=== PATIENT | female | born 1955 | race Caucasian/White ===

== ENCOUNTER 2021-03-28 18:30 | Emergency (ER) | payer MEDICARE, OTHER ==
--- NOTE | 2021-03-28 19:09 | EDM.PDOC ---
ED HPI GENERAL MEDICAL PROBLEM - General Chief Complaint: Trauma Stated Complaint: FELL OFF HORSE/HEAD INJURY Time Seen by Provider: 03/28/21 18:53 - History of Present Illness INITIAL COMMENTS - FREE TEXT/NARRATIVE: 65-year-old female presents the emergency room several hours after falling off a horse. She did break the back of her helmet and she had positive loss of consciousness. She complains of head and neck pain as well as pain all the way down her spine. Patient cannot recall exactly what it happened or how fast she was going. She states she is up-to-date on her tetanus shot. She uses an asthma inhaler otherwise is not on any routine medications. She states her health is generally pretty good. She has no other complaints at this time. Head Pain Score (Numeric/FACES): 8 - Related Data Allergies Allergy/AdvReac Type Severity Reaction Status Date / Time No Known Allergies Allergy Verified 03/28/21 19:00 Home Meds: Home Meds Albuterol Sulfate [Proventil Hfa] 1 inh IH Q4H PRN 03/28/21 [History] Past Medical History Respiratory History: Reports: Asthma Social & Family History - Tobacco Use Tobacco Use Status *Q: Never Tobacco User - Caffeine Use Caffeine Use: Reports: Tea - Recreational Drug Use Recreational Drug Use: No Review of Systems - Review of Systems Review Of Systems: See Below Constitutional: Reports: No Symptoms Eyes: Reports: No Symptoms, Glasses Nose: Reports: No Symptoms Mouth/Throat: Reports: No Symptoms Respiratory: Reports: Pleuritic Chest Pain Cardiovascular: Reports: No Symptoms GI/Abdominal: Reports: No Symptoms, Abdominal Pain. Denies: Diarrhea, Nausea, Vomiting Genitourinary: Reports: No Symptoms Musculoskeletal: Reports: No Symptoms Skin: Reports: No Symptoms Neurological: Reports: Dizziness, Headache ED EXAM, GENERAL - Physical Exam Exam: See Below Exam Limited By: No Limitations General Appearance: Alert, No Apparent Distress Eye Exam: Bilateral Eye: EOMI, Normal Inspection, PERRL Ears: Normal External Exam, Normal Canal, Hearing Grossly Normal, Normal TMs Nose: Normal Inspection, Normal Mucosa, No Blood Throat/Mouth: Normal Inspection, Normal Lips, Normal Teeth, Normal Gums, Normal Oropharynx, Normal Voice, No Airway Compromise Head: Atraumatic, Normocephalic Neck: Other (Vague discomfort I do not think it is coming from the bony structures) Cardiovascular: Regular Rate, Rhythm, No Edema, No Murmur GI/Abdominal: Normal Bowel Sounds, Soft, Non-Tender Back Exam: Normal Inspection, Vertebral Tenderness (No step-off deformity pains vague). No: CVA Tenderness (L), CVA Tenderness (R) Extremities: Normal Inspection, Normal Range of Motion, Non-Tender Neurological: Alert, Normal Cognition, No Motor/Sensory Deficits Psychiatric: Normal Affect, Normal Mood Course - Vital Signs Last Recorded V/S: Last Vital Signs Temp 36.0 C L 03/28/21 18:57 Pulse 90 03/28/21 19:21 Resp 16 03/28/21 19:21 BP 149/78 H 03/28/21 19:21 Pulse Ox 98 03/28/21 19:21 - Orders/Labs/Meds Orders: Active Orders 24 hr Category Date Time Status Abdomen Pelvis w Cont [CT] Stat Exams 03/28/21 19:10 Taken Cervical Spine wo Cont [CT] Stat Exams 03/28/21 19:10 Taken Head wo Cont [CT] Stat Exams 03/28/21 19:10 Taken Lumbar Spine wo Cont [CT] Stat Exams 03/28/21 19:10 Taken Thoracic Spine wo Cont [CT] Stat Exams 03/28/21 19:10 Taken UA RFX CLAUDY AND CULT IF INDIC [URIN] Stat Lab 03/28/21 19:11 Ordered Lactated Ringers [Ringers, Lactated] 1,000 ml Med 03/28/21 19:15 Active IV ASDIRECTED Medication Orders Lactated Ringer's (Ringers, Lactated) 1,000 mls @ 125 mls/hr IV ASDIRECTED CATHY Last Admin: 03/28/21 19:18 Dose: 125 mls/hr Documented by: PANCHO Labs: Laboratory Tests 03/28/21 03/28/21 Range/Units 19:18 19:18 WBC 9.68 (3.98-10.04) K/mm3 RBC 4.74 (3.98-5.22) M/mm3 Hgb 14.4 (11.2-15.7) gm/dl Hct 42.1 (34.1-44.9) % MCV 88.8 (79.4-94.8) fl MCH 30.4 (25.6-32.2) pg MCHC 34.2 (32.2-35.5) g/dl RDW Std Deviation 41.5 (36.4-46.3) fL Plt Count 169 L (182-369) K/mm3 MPV 10.4 (9.4-12.3) fl Neut % (Auto) 79.6 H (34.0-71.1) % Lymph % (Auto) 11.9 L (19.3-51.7) % [place] % (Auto) 7.4 (4.7-12.5) % Eos % (Auto) 0.5 L (0.7-5.8) Baso % (Auto) 0.2 (0.1-1.2) % Neut # (Auto) 7.70 H (1.56-6.13) K/mm3 Lymph # (Auto) 1.15 L (1.18-3.74) K/mm3 [place] # (Auto) 0.72 H (0.24-0.36) K/mm3 Eos # (Auto) 0.05 (0.04-0.36) K/mm3 Baso # (Auto) 0.02 (0.01-0.08) K/mm3 Sodium 138 (136-145) mEq/L Potassium 4.0 (3.5-5.1) mEq/L Chloride 105 (98-107) mEq/L Carbon Dioxide 25 (21-32) mEq/L Anion Gap 12.0 (5-15) BUN 11 (7-18) mg/dL Creatinine 1.0 (0.55-1.02) mg/dL Est Cr Clr Drug Dosing 49.12 mL/min Estimated GFR (MDRD) 55 (>60) mL/min BUN/Creatinine Ratio 11.0 L (14-18) Glucose 121 H (70-99) mg/dL Calcium 8.9 (8.5-10.1) mg/dL Total Bilirubin 0.6 (0.2-1.0) mg/dL AST 71 H (15-37) U/L ALT 109 H (14-59) U/L Alkaline Phosphatase 57 (46-116) U/L Total Protein 6.8 (6.4-8.2) g/dl Albumin 3.7 (3.4-5.0) g/dl Globulin 3.1 gm/dL Albumin/Globulin Ratio 1.2 (1-2) Meds: Medications Generic Name Dose Route Start Last Admin Trade Name Quin PRN Reason Stop Dose Admin Lactated Ringer's 1,000 mls @ 125 mls/hr 03/28/21 19:15 03/28/21 19:18 Ringers, Lactated IV 125 mls/hr ASDIRECTED CATHY Administration Discontinued Medications Generic Name Dose Route Start Last Admin Trade Name Quin PRN Reason Stop Dose Admin Acetaminophen 650 mg 03/28/21 22:13 Acetaminophen 325 Mg/10.15 Ml Ml PO 03/28/21 22:14 ONETIME ONE Iopamidol 100 ml 03/28/21 19:19 03/28/21 20:00 Iopamidol 612 Mg/Ml 100 Ml Bottle IVPUSH 03/28/21 19:20 100 ml ONETIME ONE Administration Iopamidol 50 ml 03/28/21 19:19 03/28/21 20:00 Iopamidol 612 Mg/Ml 50 Ml Sdv IVPUSH 03/28/21 19:20 25 ml ONETIME ONE Administration Sodium Chloride 10 ml 03/28/21 19:19 03/28/21 20:00 Sodium Chloride 0.9% 10 Ml Syringe FLUSH 03/28/21 19:20 10 ml ONETIME ONE Administration - Re-Assessments/Exams Free Text/Narrative Re-Assessment/Exam: 03/28/21 20:58 Of concern is a small subdural hematoma that is difficult to exclude versus subtle thickening of the right tentorium. I got a call out to [facility] in [place] who is awaiting the images and will have neurosurgery look at it.. 03/28/21 22:11 Case was discussed with Dr. Greenberg neurosurgeon at [facility] in [place] who believes the patient is safe for discharge he does not believe this is a acute bleed. Case was discussed with Dr. Yusuf, vascular surgeon at [facility] regarding this possible renal infarct. His thoughts are there would be nothing to do with it anyway it is unclear if this is related to the horse accident or not. Anticipating discharge home soon 03/28/21 22:29 Situation work-up discussed with the patient and her and they voiced understanding and agree with going back to their travel trailer at this point Departure - Departure Time of Disposition: 22:30 Disposition: Home, Self-Care 01 Clinical Impression: Head injury, Renal infarct - Discharge Information Referrals: PCP,Not In Area [Primary Care Provider] - Forms: ED Department Discharge Additional Instructions: Return to the emergency room with any questions problems or worsening symptoms. Get plenty of rest. Have someone awaken you every 3 hours to ensure normal behavior. Push lots of fluids eat light meals. Avoid screen light TVs computers cell phones etc. Tylenol as needed for aches and pains and discomfort. You have what looks like a small kidney infarct the etiology of this is uncertain. Keep a close eye on your blood pressure. Follow-up with your regular physician on Sunday for recheck. Sepsis Event Note (ED) - Evaluation Sepsis Screening Result: No Definite Risk - Focused Exam Vital Signs: Vital Signs Temp Pulse Resp BP Pulse Ox 03/28/21 19:21 90 16 149/78 H 98 03/28/21 18:57 36.0 C L 94 16 183/87 H 100 - My Orders Last 24 Hours: My Active Orders 03/28/21 19:10 Abdomen Pelvis w Cont [CT] Stat Cervical Spine wo Cont [CT] Stat Head wo Cont [CT] Stat Lumbar Spine wo Cont [CT] Stat Thoracic Spine wo Cont [CT] Stat 03/28/21 19:11 UA RFX CLAUDY AND CULT IF INDIC [URIN] Stat 03/28/21 19:15 Lactated Ringers [Ringers, Lactated] 1,000 ml IV ASDIRECTED - Assessment/Plan Last 24 Hours: My Active Orders 03/28/21 19:10 Abdomen Pelvis w Cont [CT] Stat Cervical Spine wo Cont [CT] Stat Head wo Cont [CT] Stat Lumbar Spine wo Cont [CT] Stat Thoracic Spine wo Cont [CT] Stat 03/28/21 19:11 UA RFX CLAUDY AND CULT IF INDIC [URIN] Stat 03/28/21 19:15 Lactated Ringers [Ringers, Lactated] 1,000 ml IV ASDIRECTED
[2021-03-28] MEDS ORDERED: Lactated Ringers 1,000 ML IV SCH (19:15)
[2021-03-28] MEDS ORDERED: Iopamidol 612 MG/ML 50 ML SDV IVPUSH ONE (19:19)
[2021-03-28] MEDS ORDERED: Sodium Chloride 0.9% 10 ML Syringe FLUSH ONE (19:19)
[2021-03-28] MEDS ORDERED: Iopamidol 612 MG/ML 100 ML Bottle IVPUSH ONE (19:19)
[2021-03-28] MEDS ORDERED: Acetaminophen 325 MG/10.15 ML ML PO ONE (22:13)
--- NOTE | 2021-03-29 07:56 | CT ---
CT abdomen and pelvis Technique: Multiple axial sections were obtained from above the dome of the diaphragm inferiorly through the pubic symphysis. Intravenous contrast was utilized. No oral contrast has been given. Delayed images were obtained. Reconstructed coronal and sagittal images are also obtained. Findings: Visualized lung bases show nothing acute. Small hiatal hernia is noted. Liver shows fatty infiltration and is slightly enlarged. Small calcification is seen within the liver which is felt to be incidental. Spleen size is normal. Gallbladder contains no calcified gallstones. Adrenal glands show no nodule. Kidneys show a low density abnormality within the upper pole of the right kidney which does not represent a simple cyst. This may represent a small area of infarct or cortical hemorrhage. This abnormality measures approximately 1.9 cm in size. Kidneys otherwise appear within normal limits. Delayed images show contrast excreted into both ureters and within the bladder. No contrast extravasation is seen. Pancreas shows no discrete abnormality. Abdominal aorta shows atherosclerotic change with no aneurysm. No retroperitoneal adenopathy is seen. No mesenteric abnormalities are seen. No pelvic mass or adenopathy is identified. Minimal free fluid is seen within the dependent pelvis most likely physiologic. Appendix is not visualized with certainty. Diffuse soft tissue thickening is seen within the posterior soft tissues to the midline and to the right of midline compatible with prominent hematoma within the subcutaneous fat. Bone window settings were reviewed which show scattered degenerative change within the spine. No acute osseous abnormality is appreciated. Impression: 1. Large subcutaneous hematoma within the subcutaneous fat of the mid and right side of the back. 2. Abnormality within the upper right kidney either due to hematoma or infarct. 3. Fatty infiltration within the liver. Small calcification within the liver which is felt to be incidental. 4. Other chronic findings as noted above. Diagnostic code #3 I agree with preliminary report from [facility], finalized on 03/28/21, 9:23 PM CDT, code 1
--- NOTE | 2021-03-29 07:59 | CT ---
CT cervical spine Technique: Multiple axial sections were obtained from above C1 inferiorly to the top of T2. Reconstructed coronal and sagittal images were obtained. Comparison: No prior cervical spine imaging is available. Findings: Degenerative change is scattered throughout the apophyseal joints within the cervical spine and upper thoracic spine. Moderate disc space narrowing is noted at C5-6 with posterior osteophytes. Anterior osteophytes are noted at this level. Degenerative change is also noted between the dens and anterior arch of C1. Mild right-sided neural foraminal stenosis is noted at C3-4. Moderate left-sided neural foraminal stenosis is noted at C3-4. Moderate to severe right-sided neural foraminal stenosis is noted at C4-5. Moderate bilateral neural foraminal stenosis is noted at C5-6. Other neural foramina are felt to be fairly well patent. AP view shows degenerative spurring within the uncovertebral joints which is most prominent at C5-6. Visualized upper lungs appear clear. No acute fracture or abnormal subluxation is seen. Impression: 1. Degenerative change as described above. 2. No acute fracture or subluxation is seen. Diagnostic code #2 I agree with preliminary report from [facility], finalized on 03/28/21, 9:01 PM CDT, code 1
--- NOTE | 2021-03-29 08:02 | CT ---
Head CT Technique: Multiple axial sections through the brain were obtained. Intravenous contrast was not utilized. Reconstructed coronal and sagittal images were obtained. Comparison: No prior prior intracranial imaging is available. Findings: Ventricles along with basal cisterns and sulci over the convexities are within normal limits for the patient's age. Basal ganglia calcification is seen which is a normal finding. Very minimal thickening of the right tentorium is seen as compared to the left side. No other abnormal parenchymal densities are seen. No other areas of abnormal hemorrhage are seen. No midline shift or mass-effect is seen. Bone window settings were reviewed which show the visualized mastoid sinuses and paranasal sinuses to appear clear. No acute calvarial abnormality is appreciated. Multiple cystic areas are seen posteriorly within the calvarium which are felt to be a normal variant. Impression: 1. Minimal thickening of the right tentorium as compared to the left side. This may be incidental but difficult to exclude a minimal subdural hematoma as the etiology. Follow-up head CT study could be obtained in 48-72 hours to make sure this is stable. 2. No other acute abnormality is appreciated. Diagnostic code #3 I agree with preliminary report from [facility], finalized on 03/28/21, 9:05 PM CDT, code 1
--- NOTE | 2021-03-29 08:05 | CT ---
CT lumbar spine Technique: Multiple axial sections were obtained through the lumbar spine. Reconstructed coronal and sagittal images were obtained. Comparison: No prior lumbar spine imaging is available. Findings: Mild disc space narrowing is seen at L1-2. Posterior disc space narrowing is noted at L5-S1. Scattered degenerative apophyseal change is seen throughout the lumbar spine which is most severe at L4-5 and L5-S1. Mild central canal stenosis is noted at L4-5 and L5-S1. Slight bilateral neural foraminal stenosis also noted at L5-S1. Other neural foramina are felt to be without definite compromise. Other findings are seen within the abdomen which are discussed on CT abdomen and pelvis report. No acute fracture or subluxation is appreciated. Impression: 1. Degenerative change as noted above. 2. No acute fracture or subluxation is seen. Diagnostic code #2 I agree with preliminary report from [facility], finalized on 03/28/21, 9:17 PM CDT, code 1
--- NOTE | 2021-03-29 08:10 | CT ---
CT thoracic spine Technique: Multiple axial sections through the thoracic spine were obtained. Reconstructed coronal and sagittal images were obtained. Comparison: No prior thoracic spine imaging is available. Findings: Disc space narrowing scattered throughout the thoracic spine is noted. Mild scattered anterior endplate osteophytes are seen. Very minimal Schmorl's node deformity is seen within the superior T3 vertebral body. There is a small disc herniation with calcification noted to the left side at T8-9 which slightly indents the central canal. No additional posterior abnormality is seen. No other areas of central canal stenosis or discrete neural foraminal stenosis are seen. Visualized lungs show a pleural-based calcification compatible with granuloma within the right upper lung. Other visualized lung shows nothing acute. Impression: 1. Degenerative change as noted above which is most prominent at T8-9 with a small disc herniation to the left of midline which shows calcification. 2. No acute fracture or subluxation is seen. Diagnostic code #3 I agree with preliminary report from [facility], finalized on 03/28/21, 9:08 PM CDT, code 1
== END 2021-03-28 22:50 | disposition home or self-care (01) ==
LOC: JD.ED 18:30
DX: S06.9X9A Unspecified intracranial injury with loss of consciousness of unspecified duration, initial encounter (principal); N28.0 Ischemia and infarction of kidney; J45.909 Unspecified asthma, uncomplicated; V80.010A Animal-rider injured by fall from or being thrown from horse in noncollision accident, initial encounter; Y93.52 Activity, horseback riding
CPT/HCPCS: 36415; 70450; 72125; 72128; 72131; 74177; 80053; 85025; 99284; A9270; J7120; Q9967